=== PATIENT | female | born 1950 | race Caucasian/White ===

== ENCOUNTER 2018-12-14 06:51 | Day surgery (SDC) | payer OTHER ==
[~2018-12-14] VITALS: Ht 152.4 cm; Wt 63.3 kg
[~2018-12-14 06:51] MED LIST: ACID REDUCER 1150 MG PO; CELE200; HYDR1TAB94; METCAR500 PO; MIRT30ST; Norco 5-325 Ta1 EACH PO; PANT40 PO; PSEU120ER; RIZATRIPTAN10 M1; RIZATRIPTAN10 M2 PO; Sudogest120 MG PO; ZOLP10 PO
--- NOTE | 2018-12-14 07:55 | NUR ---
12/14/18 0755 Yuliet Esquivel 1 TRY HAND RIGHT VEIN BLEW CML 2 TRY LEFT HAND VEIN BLEW CML 3 TRY RIGHT WRIST VEIN BLEW J 4 TRY RIGHT AC INFLATRATED J 5 TRY RIGHT HAND GOOD
== END 2018-12-14 09:00 | disposition home or self-care (01) ==
LOC: ORSCSDS 06:51
PROVIDERS: Internal Medicine Gastroenterology
PROC: 0DBA8ZX Excision of Jejunum, Via Natural or Artificial Opening Endoscopic, Diagnostic (ICD-10-PCS; principal; 2018-12-14 08:30)
DX: K92.1 Melena (principal); K21.9 Gastro-esophageal reflux disease without esophagitis; R19.7 Diarrhea, unspecified; F32.9 Major depressive disorder, single episode, unspecified; Z79.899 Other long term (current) drug therapy
CPT/HCPCS: 88305; J0330; J0461; J2405; J2704; J7120

== ENCOUNTER → 2019-03-15 | Outpatient (CLI) | payer OTHER | LOC: LAB 10:30 → LAB SHORT 10:30 | DX: R30.0 Dysuria (principal) | CPT/HCPCS: 87086 ==

== ENCOUNTER → 2019-03-20 | Outpatient (CLI) | payer OTHER | END | disposition home or self-care (01) | LOC: LAB SHORT 11:00 → LAB 11:00 | DX: R30.0 Dysuria (principal) | CPT/HCPCS: 87086 ==

== ENCOUNTER → 2020-04-24 | Outpatient (CLI) | payer OTHER | LOC: LAB 13:15 → LAB SHORT 13:15 | DX: R30.0 Dysuria (principal) | CPT/HCPCS: 87086 ==

== ENCOUNTER → 2020-05-01 | Outpatient (CLI) | payer OTHER | LOC: LAB SHORT 11:35 → LAB 11:35 | DX: R30.0 Dysuria (principal) | CPT/HCPCS: 87086 ==

== ENCOUNTER → 2020-06-09 | Outpatient (CLI) | payer OTHER | LOC: LAB 10:55 → LAB SHORT 10:55 | DX: R30.0 Dysuria (principal) | CPT/HCPCS: 87086 ==

== ENCOUNTER → 2020-12-04 | Outpatient (CLI) | payer OTHER | LOC: LAB SHORT 11:00 | DX: R30.0 Dysuria (principal) | CPT/HCPCS: 87086 ==

== ENCOUNTER → 2021-04-03 | Outpatient (CLI) | payer OTHER | END | disposition home or self-care (01) | LOC: LAB 08:25 → LAB SHORT 08:25 | DX: R30.0 Dysuria (principal) | CPT/HCPCS: 87086 ==

== ENCOUNTER → 2021-06-27 | Outpatient (CLI) | payer OTHER ==
[2021-06-27 09:52] LABS: Hematocrit 40.7 % (33.0-51.0); Hemoglobin 12.6 g/dL (11.5-16.0); Mean Corpuscular HGB 25.8 pg (26.0-34.0); Mean Corpuscular Volume 83 fL (80-100); Mean Platelet Volume 9.9 fL (9.1-12.4); Platelet Count 258 K/mm3 (150-400); RDW Coefficient Variation 13.3 % (11.7-14.2); RDW Standard Deviation 41.1 fL (35.1-46.3); Red Blood Cell Count 4.89 M/mm3 (3.80-5.20); White Blood Cell Count 6.69 K/mm3 (4.00-11.30)
[2021-06-27 10:14] LABS: Alanine Aminotransfer (ALT/SGP 14 U/L (12-78); Albumin, Blood 3.3 g/dL (3.4-5.0); Albumin/Globulin Ratio 0.9 (0.8-1.8); Alk Phos 66 U/L (50-136); Anion Gap 5 mmol/L (6-16); Aspartate Aminotrans (AST/SGOT 15 U/L (12-37); Bilirubin, Total 0.4 mg/dL (0.1-1.0); Blood Urea Nitrogen 12 mg/dL (8-24); Bun/Creatinine Ratio 13.7 (12.0-20.0); CO2, Blood 28 mmol/L (21-32); Calcium, Blood 8.8 mg/dL (8.5-10.1); Chloride, Blood 106 mmol/L (98-108); Creatinine, Blood 0.88 mg/dL (0.40-1.00); Globulin, Blood 3.6 g/dL (2.2-4.0); Glomerular Filtration Rate >60 (60-); Glucose, Blood 124 mg/dL (70-99); Magnesium, Blood 2.2 mg/dL (1.6-2.4); Potassium, Blood 3.8 mmol/L (3.5-5.5); Sodium, Blood 139 mmol/L (136-145); Total Protein, Blood 6.9 g/dL (6.4-8.2)
== END | disposition home or self-care (01) ==
LOC: LAB SHORT 08:03
PROVIDERS: Nurse Practitioner Family
DX: R10.9 Unspecified abdominal pain (principal)
CPT/HCPCS: 80053; 83735; 85027; 87086

== ENCOUNTER → 2021-07-21 | Outpatient (CLI) | payer OTHER | END | disposition home or self-care (01) | LOC: LAB SHORT 10:34 → LAB 10:34 | DX: R30.9 Painful micturition, unspecified (principal) | CPT/HCPCS: 87086 ==

== ENCOUNTER → 2021-10-21 | Outpatient (CLI) | payer OTHER ==
[2021-10-22 15:34] LABS: Appearance, Urine Clear (Clear); Bilirubin, Urine Neg (Neg); Blood, Urine 3+ (Neg); Glucose Qualitative, Urine Neg (Neg); Ketones, Urine Neg (Neg); Leukocyte Esterase, Urine Neg (Neg); Nitrite, Urine Neg (Neg); Protein, Urine Neg (Neg); Specific Gravity, Urine 1.015 (1.003-1.022); Urobilinogen, Urine NORM (Normal)
[2021-10-22 16:36] LABS: Color, Urine Pale Yellow (P-Yellow)
[2021-10-22 16:37] LABS: Bacteria Rare /hpf; Red Blood Cells, Urine 0-2 /hpf (0-2); Squamous Epithelial Cells Few /hpf (Few); White Blood Cells, Urine 0-2 /hpf (0-5)
== END | disposition home or self-care (01) ==
LOC: LAB SHORT 14:09 → EDSTATUS 10-22 12:55 → LAB FUT 10-22 12:55
PROVIDERS: Urology
DX: R31.21 Asymptomatic microscopic hematuria (principal)
CPT/HCPCS: 81001; 87086

== ENCOUNTER → 2021-11-12 | Outpatient (CLI) | payer OTHER | LOC: LAB 08:03 → LAB SHORT 08:03 | DX: R30.0 Dysuria (principal) ==

== ENCOUNTER 2022-09-01 10:33 | Emergency (ER) | payer OTHER ==
[~2022-09-01] VITALS: Ht 152.4 cm; Wt 68.0 kg
[2022-09-01 11:03] VITALS: BP 148/99
[2022-09-01] MEDS ORDERED: Prinivil10 MG (13:34)
[2022-09-01] MEDS ORDERED: TRAZ150T57 (13:35)
[2022-09-01] MEDS ORDERED: BUMETANIDE0.5 M6 PO (13:35)
[2022-09-01] MEDS ORDERED: OXYC10ER PO ×2 (13:53→16:05)
[2022-09-01] MEDS ORDERED: IBUP600 PO (13:53)
[2022-09-01] MEDS ORDERED: PRED20 PO (13:53)
== END 2022-09-01 14:48 | disposition home or self-care (01) ==
LOC: ER 10:33
DX: M54.16 Radiculopathy, lumbar region (principal); Z88.2 Allergy status to sulfonamides; Z88.1 Allergy status to other antibiotic agents; Z79.899 Other long term (current) drug therapy
CPT/HCPCS: 96372; 99283-25; J1170; J7512

== ENCOUNTER → 2022-09-03 | Outpatient (CLI) | payer OTHER ==
[~2022-09-03] MED LIST changes: +BUMETANIDE0.5 M6 PO; +IBUP600 PO; +OXYC10ER PO; +PRED20 PO; +Prinivil10 MG; +TRAZ150T57
[2022-09-03 15:37] LABS: U Amphetamine Screen Not Detected; U Barbituate Screen Not Detected; U Benzodiazapine Screen Not Detected; U Buprenorphine Screen Not Detected; U Cannabinoids Screen Not Detected; U Cocaine Screen Not Detected; U Methadone Screen Not Detected; U Methamphetamine Screen Not Detected; U Opiates Screen DETECTED; U Oxycodone Screen DETECTED; U Phencyclidine Screen Not Detected; U Propoxyphene Screen Not Detected
== END | disposition home or self-care (01) ==
LOC: LAB SHORT 10:50 → LAB 10:50
PROVIDERS: Nurse Practitioner Family
DX: Z51.81 Encounter for therapeutic drug level monitoring (principal); G89.29 Other chronic pain; Z79.891 Long term (current) use of opiate analgesic
CPT/HCPCS: G0480

== ENCOUNTER → 2022-10-24 | Outpatient (CLI) | payer OTHER | END | disposition home or self-care (01) | LOC: LAB 14:29 → LAB SHORT 14:29 | DX: R31.9 Hematuria, unspecified (principal) | CPT/HCPCS: 87086 ==

== ENCOUNTER → 2023-01-02 | Outpatient (CLI) | payer OTHER | LOC: LAB SHORT 09:00 → LAB 09:00 | DX: R30.0 Dysuria (principal); R35.0 Frequency of micturition; R31.9 Hematuria, unspecified | CPT/HCPCS: 87086 ==

== ENCOUNTER 2023-01-07 06:50 | Emergency (ER) | payer OTHER ==
[~2023-01-07] VITALS: Ht 165.1 cm; Wt 72.6 kg
[2023-01-07 07:10] VITALS: BP 136/63
== END 2023-01-07 08:38 | disposition home or self-care (01) ==
LOC: ER 06:50
DX: L76.22 Postprocedural hemorrhage of skin and subcutaneous tissue following other procedure (principal)
CPT/HCPCS: 99282

== ENCOUNTER → 2023-01-25 | Outpatient (CLI) | payer OTHER | END | disposition home or self-care (01) | LOC: LAB 11:00 → LAB SHORT 11:00 | DX: R30.0 Dysuria (principal) | CPT/HCPCS: 87077; 87086; 87186 ==

== ENCOUNTER → 2023-03-13 | Outpatient (CLI) | payer OTHER | END | disposition home or self-care (01) | LOC: LAB SHORT 20:34 → LAB 20:34 | DX: R30.0 Dysuria (principal) | CPT/HCPCS: 87086 ==

== ENCOUNTER → 2023-04-06 | Outpatient (CLI) | payer OTHER | LOC: LAB SHORT 14:53 → LAB 14:53 | DX: N39.0 Urinary tract infection, site not specified (principal) | CPT/HCPCS: 87086 ==

== ENCOUNTER → 2023-10-29 | Outpatient (CLI) | payer OTHER ==
[~2023-10-29] MED LIST changes: +Nitrofurantoin100 M1 PO; +ONDA4 PO; +OXYC10ER; +PANT20 PO; -Prinivil10 MG; +Prinivil10 MG PO; -TRAZ150T57; +TRAZ150T57 PO
== END ==
LOC: LAB SHORT 16:11 → LAB 16:11
DX: R30.0 Dysuria (principal); R35.0 Frequency of micturition; R31.9 Hematuria, unspecified
CPT/HCPCS: 87086

== ENCOUNTER 2023-12-23 09:38 | Day surgery (SDC) | payer OTHER ==
[~2023-12-23] VITALS: Ht 152.4 cm; Wt 67.7 kg
[~2023-12-23 09:38] MED LIST changes: +BUMETANIDE0.5 M1 PO; +HIPREX1 G1 PO; +Lactated Ringer's 1,000 ML IV ONE; +MIRALAX11910 PO
[2023-12-23] MEDS ORDERED: propofoL 50 ML IV ONE (09:50)
[2023-12-23] MEDS ORDERED: OXYC10TA19 (10:35)
[2023-12-23] MEDS ORDERED: Lactated Ringer's 1,000 ML IV ONE (11:16)
[2023-12-23 13:04] VITALS: BP 107/60
== END 2023-12-23 12:55 | disposition home or self-care (01) ==
LOC: ORSCSDS 09:38
PROVIDERS: Internal Medicine Gastroenterology
PROC: 0DJD8ZZ Inspection of Lower Intestinal Tract, Via Natural or Artificial Opening Endoscopic (ICD-10-PCS; principal; 2023-12-23 11:15)
DX: K59.04 Chronic idiopathic constipation (principal); R11.0 Nausea; K57.30 Diverticulosis of large intestine without perforation or abscess without bleeding; K21.9 Gastro-esophageal reflux disease without esophagitis; Z79.899 Other long term (current) drug therapy
CPT/HCPCS: J2704; J7120

== ENCOUNTER → 2025-01-09 | Outpatient (CLI) | payer OTHER ==
[~2025-01-09] MED LIST changes: -Lactated Ringer's 1,000 ML IV ONE; +OXYC10TA19
== END ==
LOC: LAB SHORT 17:16 → LAB 17:16
DX: R30.0 Dysuria (principal); N76.89 Other specified inflammation of vagina and vulva
CPT/HCPCS: 87086